=== PATIENT | male | born 1940 | race Caucasian/White ===

== ENCOUNTER 2018-12-10 09:11 | Outpatient (CLI) | payer OTHER ==
[~2018-12-10] VITALS: Ht 162.6 cm; Wt 70.3 kg
== END 2018-12-10 09:25 | disposition home or self-care (01) ==
LOC: OFIC 805 09:11
DX: H91.90 Unspecified hearing loss, unspecified ear (principal); H61.23 Impacted cerumen, bilateral; J31.0 Chronic rhinitis; R09.81 Nasal congestion